=== PATIENT | male | born 1940 | race Caucasian/White ===

== ENCOUNTER 2017-04-07 10:37 | Inpatient (IN) | payer OTHER ==
[~2017-04-07] VITALS: Ht 154.9 cm; Wt 49.0 kg
[2017-04-07 10:50] VITALS: Ht 154.9 cm; Wt 49.0 kg
[2017-04-07 12:01] LABS: UA SPECIFIC GRAVITY 1.015 (1.005-1.035); microscopic required? YES; urine erythrocyte NEGATIVE (NEGATIVE)
[2017-04-07 12:05] LABS: BASOPHIL % 0.1 % (0-2); PLATELET COUNT 163 x10^3mcL (130-400)
[2017-04-07 12:07] LABS: RED CELL DISTRIBUTION WIDTH 16.6 % (11.5-14.5)
[2017-04-07 12:34] LABS: CALCIUM 9.3 mg/dL (8.5-10.1); CARBON DIOXIDE 27.8 mmol/L (21-32); CHLORIDE SERUM 108 mmol/L (98-107); CREATININE SERUM 0.7 mg/dL (0.7-1.3); GLUCOSE SERUM 113 mg/dL (74-106); POTASSIUM SERUM 3.4 mmol/L (3.5-5.1); SODIUM SERUM 143 mmol/L (136-145)
[2017-04-07 12:39] LABS: ALKALINE PHOSPHATASE 214 U/L (46-116); ALT/SGPT 63 U/L (16-63); AST/SGOT 73 U/L (15-37); BILIRUBIN TOTAL 0.27 mg/dL (0.20-1.00); LIPASE 113 IU/L (73-393); TOTAL PROTEIN, SERUM 6.5 g/dL (6.4-8.2)
[2017-04-07 12:40] LABS: ALBUMIN 2.5 g/dL (3.4-5.0)
[2017-04-07] MEDS ORDERED: SEROQUEL25 MG PO (13:31)
[2017-04-07] MEDS ORDERED: ACT15 PO (13:31)
[2017-04-07] MEDS ORDERED: ARICEPT10 MG PO (13:31)
[2017-04-07] MEDS ORDERED: CLARITIN10 MG PO (13:32)
[2017-04-07] MEDS ORDERED: PREDNISONE20 MG (13:32)
[2017-04-07] MEDS ORDERED: LEVOFLOXACIN500 M1 PO (13:32)
[2017-04-07] MEDS ORDERED: PHECLUD PO (13:33)
[2017-04-07 14:30] VITALS: BP 129/47
[2017-04-07 14:44] VITALS: BP 123/52
[2017-04-07 14:46] LABS: T3 TOTAL 0.42 ng/mL
[2017-04-07 14:47] LABS: FREE T4 1.17 ng/dL (0.76-1.46); FREE THYROXINE INDEX 2.4 ug/dL (1.4-4.5); T4(THYROXINE) 6.8 ug/dL (4.7-13.3)
[2017-04-07 14:48] LABS: CHOLESTEROL/HDL RATIO 2.8; MAGNESIUM 2.5 mg/dL (1.8-2.4)
[2017-04-07 17:44] VITALS: BP 123/52
[2017-04-07 21:16] VITALS: BP 119/55
[2017-04-08 05:38] VITALS: BP 121/52
[2017-04-08 07:56] LABS: BASOPHIL % 0.4 % (0-2)
[2017-04-08 08:01] LABS: PLATELET COUNT 116 x10^3mcL (130-400); RED CELL DISTRIBUTION WIDTH 16.8 % (11.5-14.5)
[2017-04-08 08:04] LABS: CALCIUM 8.2 mg/dL (8.5-10.1); CARBON DIOXIDE 24.9 mmol/L (21-32); CHLORIDE SERUM 113 mmol/L (98-107); CREATININE SERUM 0.6 mg/dL (0.7-1.3); GLUCOSE SERUM 99 mg/dL (74-106); POTASSIUM SERUM 4.1 mmol/L (3.5-5.1); SODIUM SERUM 146 mmol/L (136-145)
[2017-04-08 09:43] VITALS: BP 133/55
[2017-04-08 13:15] VITALS: BP 157/51
[2017-04-08 17:13] VITALS: BP 146/66
[2017-04-08 18:09] LABS: RED BLOOD CELLS 2.74 M/mm3 (4.52-5.90)
[2017-04-08 18:13] LABS: IRON 19 ug/dL (65-170); TOTAL IRON BINDING CAPACITY 164 ug/dL (250-450)
[2017-04-08 21:11] VITALS: BP 150/60
[2017-04-09 05:19] VITALS: BP 137/53
[2017-04-09 09:42] VITALS: BP 148/71
[2017-04-09 14:27] VITALS: BP 117/62
[2017-04-09 15:34] LABS: BASOPHIL % 0 % (0-2); PLATELET COUNT 162 x10^3mcL (130-400); RED CELL DISTRIBUTION WIDTH 16.6 % (11.5-14.5)
[2017-04-09 15:51] LABS: CALCIUM 7.8 mg/dL (8.5-10.1); CARBON DIOXIDE 27.1 mmol/L (21-32); CHLORIDE SERUM 102 mmol/L (98-107); CREATININE SERUM 0.6 mg/dL (0.7-1.3); GLUCOSE SERUM 198 mg/dL (74-106); MAGNESIUM 1.8 mg/dL (1.8-2.4); PHOSPHOROUS 2.5 mg/dL (2.5-4.9); POTASSIUM SERUM 3.3 mmol/L (3.5-5.1); SODIUM SERUM 138 mmol/L (136-145)
[2017-04-09 18:19] VITALS: BP 133/57
[2017-04-09 21:47] VITALS: BP 136/66
[2017-04-10 05:45] VITALS: BP 132/70
[2017-04-10 10:17] VITALS: BP 132/78
[2017-04-10] MEDS ORDERED: LAC PO ×2 (13:12→13:46)
[2017-04-10] MEDS ORDERED: LEVAQUIN750 MG PO ×2 (13:12→13:46)
[2017-04-10 13:17] VITALS: BP 132/78
== END 2017-04-10 15:26 | disposition home or self-care (01) | DRG 177 ==
LOC: ED 10:37 → DU 13:17
PROVIDERS: Emergency Medicine; Family Medicine
DX: J69.0 Pneumonitis due to inhalation of food and vomit (principal); G93.41 Metabolic encephalopathy; N17.0 Acute kidney failure with tubular necrosis; E43 Unspecified severe protein-calorie malnutrition; G30.9 Alzheimer's disease, unspecified; F02.80 Dementia in other diseases classified elsewhere, unspecified severity, without behavioral disturbance, psychotic disturbance, mood disturbance, and anxiety; E11.65 Type 2 diabetes mellitus with hyperglycemia; E11.51 Type 2 diabetes mellitus with diabetic peripheral angiopathy without gangrene; E87.6 Hypokalemia; E83.42 Hypomagnesemia; D64.9 Anemia, unspecified; F32.9 Major depressive disorder, single episode, unspecified; Z68.20 Body mass index [BMI] 20.0-20.9, adult
CPT/HCPCS: 82962; 83880; 84439; 87804; 94150; J2405; J2543; J3490; J7030; J7512; J7620; Q0092